=== PATIENT | female | born 1945 | race Caucasian/White ===

== ENCOUNTER 2017-04-06 11:34 | Emergency (ER) | payer MEDICARE ==
[~2017-04-06 11:34] MED LIST: ALBUTEROL SULF8.5 GM INH; AMBIEN CR12.5 MG/BO; AMITIZA24 MC1 PO; ARICEPT10 MG PO; ARTHRITIS PAIN650 M5 PO; ATIVAN0.5 M1 PO; ATIVAN1 M1 PO; ATIVAN1 MG; ATROPINE 0.01%-10 ML SL; ATROPINE CARE2 ML SL; BENADRYL25 M3 PO; BENTYL20 MG PO; BENZTROPINE PO; BISCOLAX10 MG PR; CALCIUM PO; CHOLESTEROL MED; CLOZAPINE PO; CLOZARIL100 M1 PO; COGENTIN; DEPAKOTE ER250 M1 PO; DOCUSATE SODIU100 MG PO; DUCODYL5 M1 PO; ENULOSE10 GM/15 M PO; FAZACLO PO; FISH OIL 1,0001 CAP PO; FLUPHENAZI25 MG/1 ML IM; GEODON; GEODON80 MG; GLUCOPHAGE500 M3 PO; GLYCERIN1 EAC1 PR; GUAIFENESIN200 M3 PO; HERB-LAX; HYDROCHLOROTHIA25 M1 PO; JANUMET 50-501 UDTAB PO; KEFLEX500 MG PO; LAMICTAL100 MG; LAMOTRIGINE25 M3 PO; LASIX40 M1 PO; LIQUID ANTACID355 ML PO; LORAZEPAM1 M1 PO; LORAZEPAM1 MG; LORAZEPAM1 MG PO; MECLIZINE HCL25 M3 PO; MEVACOR20 M1 PO; MILK OF MAGNESIA PO; MOBIC15 M1 PO; MULTIVITAMIN1 TAB PO; NEXIUM40 MG; NON ASPIRIN650 MG PO; NYSTATIN100000 UNI SSW; NYSTOP60 GM TOP; OLANZAPINE5 M2 PO; OMEPRAZOLE20 M4 PO; OMEPRAZOLE20 MG PO; POTASSIUM CHLO10 ME2 PO; PROBIOTIC1 EACH PO; RISPERADOL; SENNA GEN PO; SENNA8.6 M2 PO; SIMETHICONE125 M1 PO; SKELAXIN800 MG PO; TRAMADOL HCL50 M2 PO; VENTOLIN HFA18 G2 PO; VITAMIN D1000 UNIT PO; VITAMIN D3 1,01 EACH PO; VITAMIN D31000 UNI3 PO; ZETIA10 MG PO; ZYPREXA5 M1 PO; [UNRECOGNIZED DRUG - OTHER] PO; [UNRECOGNIZED DRUG - REMARK] PO
[2017-04-06] MEDS ORDERED: OMEPRAZOLE20 M3 PO (12:14)
[2017-04-06] MEDS ORDERED: ASPIRIN EC81 MG PO (12:14)
[2017-04-06] MEDS ORDERED: POTASSIUM CHLO10 ME2 PO (12:14)
[2017-04-06] MEDS ORDERED: VITAMIN D32000 UNI2 PO (12:15)
[2017-04-06] MEDS ORDERED: DOK100 M2 PO (12:15)
[2017-04-06] MEDS ORDERED: MELOXICAM15 M1 PO (12:15)
[2017-04-06] MEDS ORDERED: LASIX20 M1 PO (12:15)
[2017-04-06] MEDS ORDERED: LAMICTAL25 M2 PO (12:15)
[2017-04-06] MEDS ORDERED: [UNRECOGNIZED DRUG - OTHER] PR (12:16)
[2017-04-06] MEDS ORDERED: CLOZAPINE ODT150 MG PO (12:16)
[2017-04-06] MEDS ORDERED: LINZESS290 MC1 PO (12:17)
[2017-04-06] MEDS ORDERED: FLUPHENAZI25 MG/1 ML IM (12:18)
[2017-04-06] MEDS ORDERED: CITRATE OF MAG300 M1 PO (12:18)
[2017-04-06] MEDS ORDERED: FLEET ENEMA133 ML PR (12:19)
[2017-04-06] MEDS ORDERED: ZYPREXA5 M1 PO (12:19)
[2017-04-06] MEDS ORDERED: LORAZEPAM0.5 M1 PO (12:19)
[2017-04-06] MEDS ORDERED: MINERAL OIL PO (12:19)
[2017-04-06] MEDS ORDERED: ADULT GLYCERIN1 EACH PR (12:20)
[2017-04-06] MEDS ORDERED: BISCOLAX10 MG PR (12:20)
[2017-04-06] MEDS ORDERED: ARTHRITIS PAIN650 M5 PO (12:20)
[2017-04-06] MEDS ORDERED: LIQUID ANTACID355 ML PO (12:21)
[2017-04-06] MEDS ORDERED: NYSTOP60 GM EXT (12:21)
[2017-04-06] MEDS ORDERED: SENNA8.6 M2 PO (12:21)
[2017-04-06] MEDS ORDERED: MILK OF MAGNESIA PO (12:21)
[2017-04-06] MEDS ORDERED: VENTOLIN HFA18 G2 INH (12:22)
[2017-04-06] MEDS ORDERED: ATROPINE SULFATE2 M1 SL (12:22)
[2017-04-06] MEDS ORDERED: PROAIR HFA8.5 GM INH (12:23)
== END 2017-04-06 18:59 | disposition other institution (70) ==
LOC: EDMED 11:34
DX: K59.00 Constipation, unspecified (principal); R41.82 Altered mental status, unspecified; F22 Delusional disorders; F20.9 Schizophrenia, unspecified; E11.9 Type 2 diabetes mellitus without complications; F41.9 Anxiety disorder, unspecified; F32.9 Major depressive disorder, single episode, unspecified; Z90.710 Acquired absence of both cervix and uterus; Z98.890 Other specified postprocedural states; Z79.82 Long term (current) use of aspirin; Z79.899 Other long term (current) drug therapy